=== PATIENT | male | born 1945 | race Caucasian/White ===

== ENCOUNTER 2016-04-21 16:05 | Emergency (ER) | payer MEDICARE, OTHER ==
[2016-04-21] MEDS ORDERED: CIPRO500 M1 PO (19:09)
== END 2016-04-21 19:20 | disposition home or self-care (01) ==
LOC: ED 16:05
DX: R31.9 Hematuria, unspecified (principal); N40.1 Benign prostatic hyperplasia with lower urinary tract symptoms; K86.89 Other specified diseases of pancreas; Z87.891 Personal history of nicotine dependence

== ENCOUNTER → 2016-05-22 | Outpatient (CLI) | payer MEDICARE, OTHER ==
[~2016-05-22] MED LIST: CIPRO500 M1 PO
== END ==
LOC: RAD 08:17
DX: K86.89 Other specified diseases of pancreas (principal)
CPT/HCPCS: A9579

== ENCOUNTER → 2016-11-25 | Outpatient (CLI) | payer MEDICARE, OTHER ==
[2016-04-21 19:16] VITALS: BP 177/93
== END ==
LOC: RAD 12:31
DX: K86.89 Other specified diseases of pancreas (principal)
CPT/HCPCS: Q9967

== ENCOUNTER → 2023-10-28 | Outpatient (CLI) | payer MEDICARE, OTHER | LOC: RAD 09:21 | DX: M51.16 Intervertebral disc disorders with radiculopathy, lumbar region (principal); M51.17 Intervertebral disc disorders with radiculopathy, lumbosacral region; M48.061 Spinal stenosis, lumbar region without neurogenic claudication ==